=== PATIENT | male | born 1960 | race Caucasian/White ===

== ENCOUNTER 2016-12-29 19:05 | Emergency (ER) | payer SELFPAY ==
[2016-12-29] MEDS ORDERED: oxyCODONE/Acetamin 5/325 MG* TAB PO ONE ×2 (21:10→21:55)
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
[2016-12-29 22:10] VITALS: BP 150/68
== END 2016-12-29 22:15 | disposition home or self-care (01) ==
LOC: ED 19:05
DX: M54.5 Low back pain (principal); M51.34 Other intervertebral disc degeneration, thoracic region; M54.16 Radiculopathy, lumbar region; V89.2XXA Person injured in unspecified motor-vehicle accident, traffic, initial encounter; Y93.9 Activity, unspecified; Y92.9 Unspecified place or not applicable
CPT/HCPCS: 70450; 71250; 72125; 72128; 72131; 74176; 99282; A9270-GY

== ENCOUNTER 2022-01-05 17:42 | Observation (INO) ==
[2022-01-05 19:45] LABS: ABS Basophils 0.1 10^3/ul (0-0.2); ABS Eosinophils 0.2 10^3/ul (0-0.6); ABS Lymphocytes 1.1 10^3/ul (1.0-4.8); ABS Monocytes 0.7 10^3/ul (0-0.8); ABS Neutrophils 4.6 10^3/ul (1.5-7.7); Eosinophil % 2.9 %; Hematocrit 41 % (42-52); Lymphocyte % 16.7 %; Mean Corpuscular HGB Conc 34 g/dL (31-36); Mean Corpuscular Hemoglobin 29 pg (27-31); Mean Corpuscular Volume 87 fL (80-94); Mean Platelet Volume 8.9 fL (7.4-10.4); Platelet Count 200 10^3/uL (150-450); Red Blood Count 4.79 10^6 /uL (4.18-5.48); Red Cell Distribution Width 13 % (10-15); White Blood Count 6.6 10^3/uL (3.5-10.8)
[2022-01-05 19:57] LABS: Activated Partial Thrombo Time 36.7 seconds (26.0-38.0); INR 0.97 (0.89-1.11)
[2022-01-05 20:00] LABS: Glucose 192 mg/dL (70-100)
[2022-01-05 20:06] LABS: Urine Appearance Clear; Urine Bilirubin Negative (Negative); Urine Blood Negative (Negative); Urine Color Yellow; Urine Glucose Negative (Negative); Urine Ketones Negative (Negative); Urine Nitrite Negative (Negative); Urine Protein Negative (Negative); Urine Specific Gravity 1.023 (1.002-1.030); Urine Urobilinogen Negative (Negative)
[2022-01-05 20:30] LABS: Albumin 4.3 g/dL (3.2-5.2); Albumin/Globulin Ratio 2.2 (1-3); Calcium 9.3 mg/dL (8.6-10.3); Potassium 4.5 mmol/L (3.5-5.0); Total Bilirubin 0.4 mg/dL (0.2-1.0); Total Protein 6.3 g/dL (6.4-8.9); eGFR CKD-EPI 98.4 (>60)
[2022-01-05 20:31] LABS: Creatine Kinase 246 U/L (10-223)
[2022-01-05] MEDS ORDERED: Iodixanol (CONTRAST) 320 MG/ML 100 ML SDV IV ONE (20:33)
[2022-01-05 20:58] LABS: C Reactive Protein 1.59 mg/L (<8.01)
[2022-01-05 21:08] LABS: High Sensitivity Troponin 1 Hr 15 pg/mL (<20)
[2022-01-05 22:11] LABS: Erythrocyte Sed Rate 8 mm/Hr (0-19)
[2022-01-05] MEDS ORDERED: Dextrose 50% Syringe 50 ml 25 GM/50 ML SYRINGE IV PUSH PRN (23:49)
[2022-01-06 00:17] LABS: HDL Cholesterol 55.9 mg/dL
[2022-01-06 00:33] LABS: TSH Ultra Thyroid Stim Horm 1.48 mcIU/mL (0.34-5.60)
[2022-01-06 05:34] LABS: ABS Eosinophils 0.2 10^3/ul (0-0.6); ABS Lymphocytes 1.5 10^3/ul (1.0-4.8); ABS Monocytes 0.8 10^3/ul (0-0.8); ABS Neutrophils 4.1 10^3/ul (1.5-7.7); Eosinophil % 3.7 %; Hematocrit 38 % (42-52); Hemoglobin 13.2 g/dL (14.0-18.0); Mean Corpuscular HGB Conc 34 g/dL (31-36); Mean Corpuscular Hemoglobin 30 pg (27-31); Mean Corpuscular Volume 86 fL (80-94); Mean Platelet Volume 9.4 fL (7.4-10.4); Platelet Count 175 10^3/uL (150-450); Red Blood Count 4.46 10^6 /uL (4.18-5.48); Red Cell Distribution Width 13 % (10-15); White Blood Count 6.6 10^3/uL (3.5-10.8)
[2022-01-06 05:56] LABS: Calcium 7.4 mg/dL (8.6-10.3); Potassium 3.3 mmol/L (3.5-5.0); eGFR CKD-EPI 105.9 (>60)
[2022-01-06] MEDS ORDERED: Potassium Chlor 20 meq TAB.ER PO ONE (07:32)
[2022-01-06] MEDS ORDERED: Enoxaparin 40 MG/0.4 ML SYR SUBCUT SCH (08:00)
[2022-01-06] MEDS ORDERED: Gadoteridol (CONTRAST) 279.3 MG/ML 10 ML IV ONE (11:23)
[2022-01-06 15:37] VITALS: BP 100/55
== END 2022-01-06 17:40 | disposition home or self-care (01) ==
LOC: EDHOLD 17:42 → ED 17:42 → SUATTDRO 23:38 → EDHOLD 01-06 09:57 → MEDTELE 01-06 10:20
PROVIDERS: ADMIT Student in an Organized Health Care Education/Training Program; ATTEND Hospitalist

== ENCOUNTER 2022-06-14 16:51 | Observation (INO) ==
[2022-06-14 18:15] LABS: ABS Basophils 0.1 10^3/uL (0.0-0.1); ABS Monocytes 0.6 10^3/uL (0.0-1.1); ABS Neutrophils 7.2 10^3/uL (1.5-7.6); Eosinophil % 0.3 %; Hematocrit 42.1 % (38-53); Hemoglobin 14.7 g/dL (13.2-16.3); Lymphocyte % 11.1 %; Mean Corpuscular Hemoglobin 30.2 pg (27-33); Mean Corpuscular Hgb Conc 34.9 g/dL (31-36); Mean Corpuscular Volume 86.6 fL (80-97); Mean Platelet Volume 8.9 fL (7.5-11.2); Platelet Count 189 10^3/uL (150-450); Red Blood Count 4.86 10^6/uL (4.06-5.63)
[2022-06-14] MEDS ORDERED: Iodixanol (CONTRAST) 320 MG/ML 100 ML SDV IV ONE (18:27)
[2022-06-14 18:33] LABS: Urine Appearance Clear; Urine Bilirubin Negative (Negative); Urine Blood Negative (Negative); Urine Color Yellow; Urine Glucose Negative (Negative); Urine Ketones Negative (Negative); Urine Nitrite Negative (Negative); Urine Protein Negative (Negative); Urine Specific Gravity 1.009 (1.002-1.030); Urine Urobilinogen Negative (Negative)
[2022-06-14 18:58] LABS: Albumin 4.3 g/dL (3.2-5.2); Albumin/Globulin Ratio 2.2 (1-3); C Reactive Protein 2.1 mg/L (<8.01); Calcium 9.2 mg/dL (8.6-10.3); Creatinine, Serum 0.94 mg/dL (0.67-1.17); Potassium 4.6 mmol/L (3.5-5.0); Total Bilirubin 0.5 mg/dL (0.2-1.0); Total Protein 6.3 g/dL (6.4-8.9); eGFR CKD-EPI 92.8 (>60)
[2022-06-15 00:42] LABS: HDL Cholesterol 59.6 mg/dL
[2022-06-15] MEDS ORDERED: Dextrose 50% Syringe 50 ml 25 GM/50 ML SYRINGE IV PUSH PRN (00:42)
[2022-06-15] MEDS ORDERED: Insulin GLARGINE 100 un/ml 10 ml VIAL SUBCUT SCH (01:00)
[2022-06-15 16:14] VITALS: BP 124/53
== END 2022-06-15 20:45 | disposition home or self-care (01) ==
LOC: ED 16:51 → EDHOLD 16:51 → SUATTDRO 22:01 → EDHOLD 06-15 20:50
PROVIDERS: ADMIT Internal Medicine; ATTEND Hospitalist